=== PATIENT | female | born 1980 | race African-American/Black ===

== ENCOUNTER → 2017-09-20 | Day surgery (SDC) | payer OTHER ==
[~2017-09-20] VITALS: Ht 170.2 cm; Wt 66.5 kg
[~2017-09-20] MED LIST: CHLORHEXIDINE GLUCONATE 2 % 1 PACK (2 CLOTHS) TOPICAL PRN; DO NOT ADM ANY ANTICOAGULANT DRUGS PRN; INDOMETHACIN 50 MG CAP PO PRN; LACTATED RINGER'S 1000 ML IV PRN; METOPROLOL TARTRATE 25 MG TAB PO PRN; ONDANSETRON HCL 4 MG/2 ML VIAL IV PUSH PRN; POVIDONE IODINE 5% (ANTISEPSIS KIT) 4 APPLICATIONS EACH NARE PRN; PROPOFOL 200 MG/20 ML AMP IV ONE; SODIUM CHLORID 0.9% 500 ML IV PRN; TRICTAB PO; ceFAZolin 2 GM PREMIX 50 ML IV SCH
--- NOTE | 2017-09-20 10:04 | MH ---
cc: Ekaterina Otero MD DATE OF ADMISSION: 09/20/2017 HISTORY OF PRESENT ILLNESS: The patient is a 36-year-old 4, para 2-0-1-2 who presents at 15 weeks gestation for cerclage placement secondary to history of incompetent cervix. The patient has had 2 prior cerclages placed with her last 2 pregnancies. Her to date has been uncomplicated, just mild nausea and vomiting. Her RAISA is 03/10, that makes her 15 weeks gestation. PAST MEDICAL HISTORY: Negative. PAST SURGICAL HISTORY: Cerclage x 2. OBSTETRIC HISTORY: She has had 2 vaginal deliveries, her largest child weighed 8 pounds 5 ounces. She has had 1 miscarriage. 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 ALLERGIES: NONE. FAMILY HISTORY: She has a mother with hypertension, a father who with history HIV, a paternal great aunt with breast cancer. SOCIAL HISTORY: Negative for cigarettes, alcohol or street drugs. The patient is and is a homemaker. PHYSICAL EXAMINATION: VITAL SIGNS: Her height is 5 feet 6, her weight is 146. HEART: Regular rate and rhythm. LUNGS: Clear to auscultation bilaterally. ABDOMEN: Soft, nontender, nondistended, gravid. LOWER EXTREMITIES: Nontender, nonedematous. IMPRESSION: History of cervical incompetence and cerclage placement with previous pregnancies. PLAN: [place] cervical cerclage. Risks, benefits and alternatives have been reviewed. The patient does desire to proceed. MD MARTA Dominguez/ANNABELLE , 09:48 AM , 10:03 AM
[2017-09-20 12:02] LABS: BASOPHIL % 0.3 % (0.0-2.0); EOSINOPHIL % 0.6 % (0.0-4.0); HEMATOCRIT 27.8 % (35.0-46.0); HEMOGLOBIN 9.9 GM/DL (11.6-15.3); LYMPH % 26.1 % (9.0-44.0); LYMPHOCYTE # 1.6 TH/MM3 (1.0-4.8); MEAN CELL VOLUME 92.5 FL (80.0-100.0); MEAN CORPUSCULAR HEMOGLOBIN 32.9 PG (27.0-34.0); MEAN CORPUSCULAR HGB CONC 35.5 % (32.0-36.0); MEAN PLATELET VOLUME 7.8 FL (7.0-11.0); MONO % 8.8 % (0.0-8.0); MONOCYTE # 0.5 TH/MM3 (0-0.9); NEUT % 64.2 % (16.0-70.0); PLATELET COUNT 216 TH/MM3 (150-450); RED BLOOD COUNT 3.01 MIL/MM3 (4.00-5.30); RED CELL DISTRIBUTION WIDTH 14.9 % (11.6-17.2); WHITE BLOOD COUNT 6.3 TH/MM3 (4.0-11.0)
[2017-09-20 16:48] VITALS: BP 119/78; PULSE 91; RESP 18; TEMP 98.3; O2SAT 100
== END | disposition home or self-care (01) ==
LOC: HSDC 10:34
PROVIDERS: ATTEND Obstetrics & Gynecology
DX: O34.32 Maternal care for cervical incompetence, second trimester (principal); Z3A.15 15 weeks gestation of pregnancy
CPT/HCPCS: 00948; 59320; 85025; 86850; 86900; 86901; J0690; J7120

== ENCOUNTER 2017-11-08 09:56 | Emergency (ER) | payer OTHER ==
[~2017-11-08 09:56] MED LIST changes: -CHLORHEXIDINE GLUCONATE 2 % 1 PACK (2 CLOTHS) TOPICAL PRN; -DO NOT ADM ANY ANTICOAGULANT DRUGS PRN; -INDOMETHACIN 50 MG CAP PO PRN; -LACTATED RINGER'S 1000 ML IV PRN; -METOPROLOL TARTRATE 25 MG TAB PO PRN; -ONDANSETRON HCL 4 MG/2 ML VIAL IV PUSH PRN; -POVIDONE IODINE 5% (ANTISEPSIS KIT) 4 APPLICATIONS EACH NARE PRN; -PROPOFOL 200 MG/20 ML AMP IV ONE; -SODIUM CHLORID 0.9% 500 ML IV PRN; -ceFAZolin 2 GM PREMIX 50 ML IV SCH
--- NOTE | 2017-11-08 10:46 | PD ---
HPI Chief Complaint Leaking fluid Date Seen: Nov 08, 2017 Time Seen: 10:33 Travel History International Travel<30 Days: No Contact w/Intl Traveler<30Days: No Known Affected Area: No History of Present Illness HPI 37-year-old 4 para 2 Ab1 at 22 weeks gestation with a cerclage placed prophylactically September 19. She reports feeling like she is leaking clear fluid. She denies bleeding or contractions. No irritative symptoms and no foul odor. Weeks Gestation: 22 : 1 History Past Medical History Medical History: Denies Significant Hx Past Surgical History Narrative Surgical Prior cerclage 2, elective Family History Family History: Negative Social History Alcohol Use: No Tobacco Use: No Substance Abuse: No Allergies-Medications (Allergen,Severity, Reaction): Coded Allergies: No Known Allergies (Unverified , 09/18/17) Home Meds Reported Medications Vit-Ferrous Fumarate () 27 Mg Iron-1 Mg Tab, 1 TAB PO DAILY for Nutritional Supplement, #30 TAB 0 Refills 09/18/17 Review of Systems Except as stated in HPI: all other systems reviewed are Neg Physical Exam Narrative GENERAL: Well-nourished, well-developed patient. SKIN: Warm and dry. HEAD: Normocephalic and atraumatic. EYES: No scleral icterus. No injection or drainage. ENT: No nasal drainage noted. Mucous membranes pink. Airway patent. NECK: Supple, trachea midline. No JVD. CARDIOVASCULAR: Regular rate and rhythm without murmurs, gallops, or rubs. RESPIRATORY: Breath sounds equal bilaterally. No accessory muscle use. BREASTS: Bilateral exam showed no masses , no retractions, no nipple discharge. ABDOMEN/GI: Abdomen soft, non-tender, bowel sounds present, no rebound, no guarding Gravid to [-] weeks size Fundal Height: [22-] GENITOURINARY: External Genitalia: intact and normal in appearance BUS glands: [-] Cervix: [-] Dilatation: [-] Effacement: [-] Station: [-] Presentation: [-] Membranes: [intact by amnisure] Uterine Contractions: [-] FHT's: Category: [-] Baseline: [160-] Reactive: [-] Variability: [-] Decels: [-] EXTREMITIES: No cyanosis or edema. BACK: Nontender without obvious deformity. No CVA tenderness. NEUROLOGICAL: Awake and alert. Motor and sensory grossly within normal limits. Five out of 5 muscle strength in all muscle groups. Normal speech. MDM Medical Record Reviewed: Yes Narrative Course / MDM Assessment: 22 week intrauterine with cerclage without evidence of ruptured membranes Plan: Discharge home Diagnosis Diagnosis: Primary Impression: 22 weeks gestation of Additional Impression: Vaginal leukorrhea Disposition: DISCHARGE HOME Condition: Good Alban Ross MD Nov 08, 2017 10:46
== END 2017-11-08 11:00 | disposition home or self-care (01) ==
LOC: HOBED 09:56
DX: O99.89 Other specified diseases and conditions complicating pregnancy, childbirth and the puerperium (principal); N89.8 Other specified noninflammatory disorders of vagina; Z3A.22 22 weeks gestation of pregnancy
CPT/HCPCS: 84112; 99283

== ENCOUNTER 2018-03-03 05:09 | Inpatient (IN) ==
[2018-03-03] MEDS ORDERED: Oxytocin 30 Units/500ml Premix 30 UNITS/500 ML BAG IV.SIG PRN (05:53)
[2018-03-03] MEDS ORDERED: Sod Chloride 0.9% Inj 1,000 ML IV.CONT PRN (05:59)
[2018-03-03] MEDS ORDERED: Sodium Chlor 0.9% Inj 500 ML IV.SIG PRN (05:59)
[2018-03-03] MEDS ORDERED: fentaNYL Citrate Inj 100 MCG/2 ML Ampul IV.PUSH PRN ×2 (05:59)
[2018-03-03] MEDS ORDERED: Oxytocin 30 Units/500ml Premix 30 UNITS/500 ML BAG IV.SIG ONE (05:59)
[2018-03-03 06:51] LABS: Baso % (Auto) 0.3 % (0.0-2.0); Eos # (Auto) 0.1 th/mm3 (0.0-0.4); Eos % (Auto) 0.9 % (0.0-4.0); Hemoglobin 8.5 gm/dL (11.6-15.3); Lymph # (Auto) 1.2 th/mm3 (1.0-4.8); Lymph % (Auto) 19.1 % (9.0-44.0); Mean Corpuscular Hemoglobin 31.8 pg (27.0-34.0); Mean Corpuscular Volume 93.6 fL (80.0-100.0); Mean Platelet Volume 9.4 fL (7.0-11.0); Mono # (Auto) 0.8 th/mm3 (0.0-0.9); Neut # (Auto) 4.2 th/mm3 (1.8-7.7); Neut % (Auto) 66.7 % (16.0-70.0); Platelet Count 146 th/mm3 (150-450); Red Blood Count 2.67 mil/mm3 (4.00-5.30); Red Cell Distribution Width 15.3 % (11.6-17.2); White Blood Count 6.2 th/mm3 (4.0-11.0)
[2018-03-03 06:52] LABS: Bacteria,Urine Many /hpf; Bilirubin,Urine Negative (Negative); Clarity,Urine Hazy (Clear); Color,Urine Yellow (Yellw/Straw); Glucose,Urine (UA) Negative (Negative); Hyaline Casts,Urine 1 /lpf (0-3); Leukocyte Esterase,Urine Negative (Negative); Nitrite,Urine Negative (Negative); Specific Gravity,Urine 1.017 (1.002-1.035); Squamous Epithelial Cell,Urine 7 /hpf (0-5)
[2018-03-03 06:58] LABS: Amphetamine Urine With Conf Neg (Neg); Benzodiazepine Urine With Conf Neg (Neg)
[2018-03-03] MEDS ORDERED: fentaNYL 2MCG-Bupiv 0.125% Epi 150 ML EPIDURAL ONE (15:16)
[2018-03-03] MEDS ORDERED: Diphtheria/Tetanus/Pertussis Vaccine Inj 0.5 ML Syringe IM ONE (16:00)
[2018-03-03] MEDS ORDERED: Rho Immune Globulin Inj 1,500 UNIT/1.3 ML Vial IM ONE (16:00)
[2018-03-03] MEDS ORDERED: Measles/Mumps/Rubella Vaccine Inj 0.5 ML Vial SQ ONE (16:00)
[2018-03-03] MEDS ORDERED: fentaNYL 2MCG-Bupiv 0.125% Epi 150 ML EPIDURAL PRN (16:45)
[2018-03-03] MEDS ORDERED: fentaNYL Citrate Inj 100 MCG/2 ML Ampul EPIDURAL ONE (16:50)
--- NOTE | 2018-03-03 18:07 | P.OBDELI ---
Weeks Gestation: 39 Patient Started Active Labor: No Medical Induction of Labor: Yes Artificial Rupture of Membrane: Yes Anesthesia: Epidural Episiotomy: none Vaginal Delivery: Normal Presentation: Occiput anterior Nuchal Cord: None Delayed Cord Clamping (45 sec): Yes Shoulder Dystocia: Suprapubic pressure given, Marlin maneuver done, Wood's screw maneuver done Placenta: Spontaneous delivery, Intact, 3 vessel cord Laceration: 2 deg Repair: Chromic interrupted, Chromic running Estimated blood loss (mL): 300 : Female
[2018-03-03] MEDS ORDERED: Witch Hazel 50%/Glyderin 12.5% 40 Pad Jar RECTAL PRN (18:08)
[2018-03-03] MEDS ORDERED: Naloxone Inj 0.4 MG/ML Vial IV.PUSH PRN (18:08)
[2018-03-03] MEDS ORDERED: Bisacodyl 10 MG Supp RECTAL PRN (18:08)
[2018-03-03] MEDS ORDERED: Zolpidem Tartrate 5 MG Tablet PO PRN (18:08)
[2018-03-03] MEDS ORDERED: Benzocaine 20% Top Spray 60 ML Can TOPICAL PRN (18:08)
[2018-03-03] MEDS ORDERED: Acetaminophen 325 MG Tablet PO PRN (18:08)
[2018-03-03] MEDS ORDERED: Oxytocin 30 Units/500ml Premix 30 UNITS/500 ML BAG IV.CONT SCH (18:15)
[2018-03-03] MEDS: Ibuprofen 400 MG Tablet PO PRN (20:56)
[2018-03-03] MEDS: Senna/Docusate Sodium 8.6/50 MG Tablet PO SCH (21:57)
[2018-03-04] MEDS: Ibuprofen 400 MG Tablet PO PRN ×3 (05:49→22:31)
[2018-03-04] MEDS: Senna/Docusate Sodium 8.6/50 MG Tablet PO SCH ×2 (08:57→22:30)
--- NOTE | 2018-03-04 12:39 | P.PNOB ---
Objective Vital Signs/I&O: Vital Signs 03/03/18 12:47 03/03/18 13:00 03/03/18 15:00 Temperature Pulse Rate 81 Respiratory Rate 18 19 Blood Pressure 94/51 L 03/03/18 15:01 03/03/18 15:45 03/03/18 15:53 Temperature Pulse Rate 87 89 Respiratory Rate 19 17 Blood Pressure 123/71 103/41 L 03/03/18 16:00 03/03/18 16:02 03/03/18 16:26 Temperature Pulse Rate 108 H 91 H Respiratory Rate 17 Blood Pressure 102/42 L 110/40 L 03/03/18 16:30 03/03/18 16:41 03/03/18 17:10 Temperature Pulse Rate 84 80 Respiratory Rate 18 Blood Pressure 127/59 L 122/61 03/03/18 17:30 03/03/18 18:31 03/03/18 18:51 Temperature Pulse Rate 80 92 H 89 Respiratory Rate 20 20 20 Blood Pressure 108/52 L 99/61 L 95/65 L 03/03/18 19:00 03/03/18 21:20 03/04/18 08:00 Temperature 98.4 F 97.8 F Pulse Rate 74 72 93 H Respiratory Rate 18 18 Blood Pressure 109/65 110/56 L 101/53 L Intake & Output 03/03/18 03/04/18 03/04/18 18:59 06:59 18:59 Weight 83 kg Other: Weight On Admission 83 kg Result Diagrams: 03/03/18 06:00 Objective Remarks: GENERAL: Well-nourished, well-developed patient. CARDIOVASCULAR: Regular rate and rhythm without murmurs, gallops, or rubs. RESPIRATORY: Breath sounds equal bilaterally. No accessory muscle use. ABDOMEN/GI: Abdomen soft, non-tender. Fundus: Firm, non-tender at umbilicus. GENITOURINARY: Light to moderate bleeding. EXTREMITIES: No cyanosis or edema, non-tender, without signs of DVT. Medications and IVs: Active Medications Acetaminophen (Tylenol) 650 mg PO Q4H PRN PRN Reason: PAIN SCALE 1 TO 2 Al Hydroxide/Mg Hydroxide (Milk Of Magnesia Liq) 30 ml PO Q12H PRN PRN Reason: Mild Constipation Benzocaine (Americaine 20% [place]) 1 spray TOPICAL Q4H PRN PRN Reason: For Perineum Discomfort Last Admin: 03/03/18 22:00 Dose: 1 spray Bisacodyl (Dulcolax Supp) 10 mg RECTAL DAILY PRN PRN Reason: SEVERE CONSITIPATION Ephedrine Sulfate (Ephedrine/Ns Syringe) 10 mg IV.PUSH UNSCH PRN PRN Reason: SEE LABEL COMMENTS Stop: 03/04/18 16:45 Last Admin: 03/03/18 16:05 Dose: 10 mg Fentanyl Citrate (Fentanyl Inj) 100 mcg IV.PUSH Q1H PRN PRN Reason: PAIN SCALE 6 TO 10 Last Admin: 03/03/18 10:58 Dose: 100 mcg Fentanyl Citrate (Fentanyl Inj) 50 mcg IV.PUSH Q1H PRN PRN Reason: Pain Scale 3 - 5 Last Admin: 03/03/18 13:08 Dose: 50 mcg Oxytocin (Pitocin 30 Units/Ns 500 Ml Premix) 30 units in 500 mls @ 2 mls/hr IV.SIG TITRATE PRN; Protocol PRN Reason: For induction of labor Last Admin: 03/03/18 07:30 Dose: 2 milliunit/min, 2 mls/hr Lactated Ringer's (Lr 1000 Ml Inj) 1,000 mls @ 125 mls/hr IV.CONT .Q8H FIDEL Last Admin: 03/04/18 07:45 Dose: Not Given Lactated Ringer's (Lr 1000 Ml Inj) 1,000 mls @ 3,000 mls/hr IV.SIG UNSCH PRN PRN Reason: compromise or epidural Last Admin: 03/03/18 14:57 Dose: 3,000 mls/hr Sodium Chloride (Ns Inj) 1,000 mls @ 100 mls/hr IV.CONT .Q10H PRN PRN Reason: SEE LABEL COMMENTS Sodium Chloride (Ns Inj) 500 mls @ 1,000 mls/hr IV.SIG UNSCH PRN PRN Reason: SEE LABEL COMMENTS Fentanyl/Bupivacaine/Sodium Chlor (Fentanyl 2 Mcg-Bupiv 0.125% Epi) 150 mls @ 10 mls/hr EPIDURAL PRN PRN PRN Reason: for Labor Pain Last Admin: 03/03/18 15:39 Dose: 10 mls/hr Ibuprofen (Motrin) 800 mg PO Q8H PRN PRN Reason: For cramping Last Admin: 03/04/18 05:49 Dose: 800 mg Lactulose (Lactulose Liq) 30 ml PO DAILY PRN PRN Reason: SEVERE CONSITIPATION Lidocaine HCl (Xylocaine 1% Inj) 0.1 ml I-DERMAL PRN PRN PRN Reason: For IV start Lidocaine HCl (Xylocaine 1% Inj) 10 ml INFILTRATN PRN PRN PRN Reason: For episiotomy repair Mineral Oil (Muri-Lube Oil) 10 ml TOPICAL PRN PRN PRN Reason: PRN perineal massage Miscellaneous Information (Misc Information) 1 each OTHER UNSCH PRN PRN Reason: SEE LABEL COMMENTS Stop: 03/04/18 16:45 Miscellaneous Information (Misc Information) 1 each OTHER UNSCH PRN PRN Reason: SEE LABEL COMMENTS Stop: 03/04/18 16:45 Naloxone HCl (Narcan Inj) 0.1 mg IV.PUSH Q2M PRN PRN Reason: for opiate reversal Ondansetron HCl (Zofran Odt) 4 mg PO Q6H PRN PRN Reason: NAUSEA OR VOMITING Oxycodone/Acetaminophen (Percocet 5/325 Mg) 1 tab PO Q4H PRN PRN Reason: PAIN SCALE 3 TO 5 Last Admin: 03/04/18 11:49 Dose: 1 tab Oxycodone/Acetaminophen (Percocet 5/325 Mg) 2 tab PO Q4H PRN PRN Reason: PAIN SCALE 6 TO 10 Last Admin: 03/04/18 01:47 Dose: 2 tab Senna/Docusate Sodium (Sima-Colace) 1 tab PO BID [facility] Last Admin: 03/04/18 08:57 Dose: 1 tab Sennosides (Senokot) 17.2 mg PO Q12H PRN PRN Reason: Moderate Constipation Sodium Chloride (Ns Flush) 2 ml IV.FLUSH BID [facility] Last Admin: 03/04/18 08:57 Dose: 2 ml Sodium Chloride (Ns Flush) 2 ml IV.FLUSH PRN PRN PRN Reason: FLUSH AFTER USING IV ACCESS Witch Fidelia/Glycerin (Tucks Pads) 1 applicatio RECTAL QID PRN PRN Reason: HEMORRHOIDS Last Admin: 03/03/18 22:00 Dose: 1 applicatio Zolpidem Tartrate (Ambien) 5 mg PO HS PRN PRN Reason: SLEEP Assessment and Plan - Plan PPD # 1 s/p with probable pubis based on sx and size of baby, will consult PT and obtain a walker to help with ambulation and transfers, otherwise routine post care
[2018-03-05] MEDS: Ibuprofen 400 MG Tablet PO PRN ×2 (06:05→14:11)
[2018-03-05] MEDS: Senna/Docusate Sodium 8.6/50 MG Tablet PO SCH (08:42)
== END 2018-03-05 17:51 | disposition home or self-care (01) ==
LOC: H2E 05:09 → H1EA 21:10
PROVIDERS: ADMIT Obstetrics & Gynecology; ATTEND Obstetrics & Gynecology